=== PATIENT | female | born 1945 | race African-American/Black ===

== ENCOUNTER 2017-03-22 13:45 | Emergency (ER) | payer MEDICARE ==
[~2017-03-22] VITALS: Ht 160 cm; Wt 100.2 kg
[~2017-03-22 13:45] MED LIST: CALCIUM + D 6001 TAB PO; LANTUS100 U/ML SC; PROAIR HFA0.09 MG/Ac INH; ZYRTEC10 MG PO
--- NOTE | 2017-03-22 14:39 | RADIOLOGY REPORT ---
EXAMINATION: XR KNEE, RIGHT CLINICAL INFORMATION: Right knee gave out. Unable to ambulate. COMPARISON: None TECHNIQUE: Four views of the right knee. FINDINGS: No fracture or subluxation. Mild medial compartment joint space narrowing. Small tricompartmental marginal osteophytes. No joint effusion. The soft tissues are unremarkable. IMPRESSION: No acute fracture or malalignment. Mild tricompartmental degenerative changes.
--- NOTE | 2017-03-22 15:36 | ED UPPER/LOWER EXTREMITY COMPL ---
History of Present Illness General Chief Complaint: Lower Extremity Problems Stated Complaint: PT HAS PAIN IN THE RT KNEE Source: patient Exam Limitations: no limitations Vital Signs & Intake/Output Vital Signs & Intake/Output Vital Signs Date Time Temp Pulse Resp B/P B/P Pulse O2 O2 Flow FiO2 Mean Ox Delivery Rate 03/22 1645 97.2 86 16 148/70 98 Room Air ED Intake and Output 03/23 0000 03/22 1200 Intake Total Output Total Balance Patient 221 lb Weight Allergies Coded Allergies: cat dander (TRIGGERS ASTHMA 01/26/16) dog dander (TRIGGERS ASTHMA 01/26/16) grape (RED GRAPES MOUTH ITCHES 01/26/16) peach (MAKE MOUTH ITCH 01/26/16) potato (INDIGESTION 01/26/16) propoxyphene (PER PT NAUSEA VOMITING 01/26/16) Uncoded Allergies: ENVIRONMENTAL (TRIGGERS ASTHMA 01/26/16) Reconcile Medications Albuterol Sulfate (Proair Hfa) 0.09 MG/Actuation SARAH 2 PUFF INH PRN ASTHMA ( Reported) Calcium/Vitamin D (Calcium + D) (Unknown Strength) TAB (Unknown Dose) PO BID SUPPLEMENT (Reported) Cetirizine Hydrochloride (Zyrtec) 10 MG TAB 1 TAB PO DAILY ALLERGIES ( Reported) Insulin Glargine, Recombinan (Lantus) 100 U/ML KAYLIE 10 UNITS SC QAM DIABETES ( Reported) Naproxen 375 MG TABLET 1 TAB PO BID PRN PAIN with food Triage Note: 71 YEAR OLD FEMLAE STATES THAT SHE HAS ARTHRITIS IN HER KNEES AND ABOUT 2 HOURS AGO SHE WENT TO WALK AND HER R KNEE GAVE OUT AND THAT SHE CAN NOT BARE WEIGHT NOW Triage Nurses Notes Reviewed? yes Onset: Abrupt Duration: constant Severity: moderate Severity Numbers: 5 Pain/Injury Location: Right: Knee. HPI: Patient is a 71-year-old female with a past medical history of arthritis, hypertension and diabetes who presents emergency and that today she was in her normal state of health patient step down off of a step where she hyperextended her right knee in which she had moderate pain upon ambulation however she rested approximately 2 hours later she complained of right knee soreness and stiffness and worsening pain upon weightbearing activities. Patient did not take any medications prior to arrival. Denies any history of right knee pain injuries or surgeries. (JOEY HAQ,SCOTT) Past History Travel History Traveled to [place] past 21 day No Medical History Any Pertinent Medical History? 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 No (SCOTT MCCARTY) Review of Systems Review of Systems Constitutional: Reports: no symptoms. EENTM: Reports: no symptoms. Respiratory: Reports: no symptoms. Cardiovascular: Reports: no symptoms. Gastrointestinal/Abdominal: Reports: no symptoms. Genitourinary: Reports: no symptoms. Musculoskeletal: Reports: see HPI, joint pain. Skin: Reports: no symptoms. Neurological/Psychological: Reports: no symptoms. Hematologic/Endocrine: Reports: no symptoms. Immunological: Reports: no symptoms. All Other Systems: Reviewed and Negative (SCOTT MCCARTY) Physical Exam Physical Exam General Appearance: no apparent distress, obese Neurologic/Tendon: normal sensation, normal motor functions, normal tendon functions Skin: intact, normal color, warm/dry Comments: HEENT: Atraumatic, extraocular motion intact Neck: Supple, no lymphadenopathy Back: Nontender Respiratory: No respiratory distress Extremities: Right hip nontender full active range of motion Right knee normal inspection noted point tenderness to popliteal region full active range of motion noted negative valgus stress test negative varus stress test negative anterior drawer test negative posterior drawer test Right lower extremity dermatomes intact with pedal pulses +2 Neuro: Alert and oriented x3 Psych: Mood affect normal, normal memory normal judgment. (SCOTT MCCARTY) Progress Differential Diagnosis: arterial insufficiency, compartment syndrome, contusion, dislocation, DVT, fracture, gout, septic arthritis, sprain, tendon injury Plan of Care: Current Medications Sig/Yelena Start time Last Medication Dose Stop Time Status Admin Ibuprofen 600 MG ONCE ONE 03/22 1630 UNVr (Motrin) 03/22 1631 X-rays on exam shows no concerns of osseous injury to where patient was point tender. Patient also had no concern of laxity of ligamentous testing while in the emergency room. Patient was ambulated under my supervision with a walker and showed normal steady gait which one was prescribed to the patient. At this time I do not feel as if a knee immobilizer would be appropriate for patient due to patient's age obesity and gait instability I strongly advised patient to follow up with orthopedic doctor. Odell wrap was placed PRE/Post neurovascular was intact (SCOTT MCCARTY) Diagnostic Imaging: Viewed by Me: Radiology Read. Radiology Impression: no fracture Comments: PATIENT: VIKY STOVER PRESENT AGE: 71 PATIENT ACCOUNT NO: [id number] : 46 LOCATION: ER ORDERING PHYSICIAN: ADELA GRANT DO SERVICE DATE: 03/22/17 EXAM TYPE: RAD - XRY-KNEE COMPLETE RIGHT EXAMINATION: XR KNEE, RIGHT CLINICAL INFORMATION: Right knee gave out. Unable to ambulate. COMPARISON: None TECHNIQUE: Four views of the right knee. FINDINGS: No fracture or subluxation. Mild medial compartment joint space narrowing. Small tricompartmental marginal osteophytes. No joint effusion. The soft tissues are unremarkable. IMPRESSION: No acute fracture or malalignment. Mild tricompartmental degenerative changes. DICTATED BY: LITA MAGALLANES,WILLAM DATE/TIME DICTATED:03/22/171432 (SCOTT MCCARTY) Departure Departure Disposition: HOME OR SELF CARE Condition: Stable Clinical Impression Primary Impression: Right knee sprain Referrals: IMELDA MAGALLANES,LUDWIG Mejias (PCP/Family) STALIN MAGALLANES,JAYJAY Additional Instructions: As discussed begin using the prescription for a walker for fall prevention. Begin to ice the area directly 20 minutes every 2 hours. Begin use an Odell wrap for swelling. Begin the prescription of Naprosyn for pain and inflammation. If symptoms worsen return to emergency room. If no better in 5 days follow-up with orthopedic DR. GANT. Please note that you have to present to a certified medical assistant store for the assisted walker Departure Forms: Customer Survey General Discharge Information Prescriptions: Current Visit Scripts Naproxen 1 TAB PO BID PRN PAIN #20 TAB with food (SCOTT MCCARTY) PA/SCREEN REPAIRER CRUSHER Co-Sign Statement Statement: ED Attending supervision documentation- [] I saw and evaluated the patient. I have also reviewed all the pertinent lab results and diagnostic results. I agree with the findings and the plan of care as documented in the PA's/SCREEN REPAIRER CRUSHER's documentation. [X] I have reviewed the ED Record and agree with the PA's/SCREEN REPAIRER CRUSHER's documentation. [] Additions or exceptions (if any) to the PAs/SCREEN REPAIRER CRUSHER's note and plan are summarized below: [] (ANGEL MAGALLANES,EZEQUIEL)
[2017-03-22] MEDS ORDERED: NAPROXEN375 M2 PO (16:37)
[2017-03-22 16:45] VITALS: BP 148/70
== END 2017-03-22 16:46 ==
LOC: ERH 13:45
DX: S83.91XA Sprain of unspecified site of right knee, initial encounter (principal); W10.9XXA Fall (on) (from) unspecified stairs and steps, initial encounter; Y93.9 Activity, unspecified; Y92.9 Unspecified place or not applicable
CPT/HCPCS: 73562-RT